=== PATIENT | male | born 1955 | race Caucasian/White ===

== ENCOUNTER 2024-09-30 11:00 | Emergency (ER) | payer OTHER, MEDICAID ==
[~2024-09-30] VITALS: Ht 172.7 cm; Wt 133.6 kg
[~2024-09-30 11:00] MED LIST: AUGMENTIN 875875 MG PO; CALCIUM CHLORIDE 1 GM/10 ML SYR IV ONE; DEXTROSE 25% IV ONE; EPINEPHrine Hydrochloride 1 MG/10 ML SYR IV ONE; FLONASE ALLERG9.9 ML NAS; HYDROCODONE BIT1 T11 PO; NAPROSYN500 MG PO; NAPROXEN500 MG PO; NKHM; OMEPRAZOLE20 M2 PO; PREDNISONE20 M1 PO; SODIUM BICARBONATE 50 MEQ/50 ML SYR IV ONE; VICODIN 5/500 505 MG PO; WATER IV ONE; ZOFRAN ODT4 MG SL
== END 2024-09-30 16:17 ==
LOC: ED 11:00 → EDBD 11:03 → ED 11:03
DX: I46.9 Cardiac arrest, cause unspecified (principal); E11.9 Type 2 diabetes mellitus without complications